=== PATIENT | female | born 1985 | race American Indian/Alaskan Native ===

== ENCOUNTER 2018-04-17 18:23 | Emergency (ER) | payer OTHER ==
[2018-04-17 18:45] VITALS: BP 140/85
[2018-04-17] MEDS ORDERED: TORADOL IM ONE (19:03)
[2018-04-17] MEDS ORDERED: NORCO 5/325 PO ONE (19:03)
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
== END 2018-04-17 20:40 | disposition home or self-care (01) ==
LOC: ED 18:23
DX: S40.022A Contusion of left upper arm, initial encounter (principal); S30.1XXA Contusion of abdominal wall, initial encounter; S20.219A Contusion of unspecified front wall of thorax, initial encounter; Z90.710 Acquired absence of both cervix and uterus; V49.9XXA Car occupant (driver) (passenger) injured in unspecified traffic accident, initial encounter; Y93.89 Activity, other specified; Y99.8 Other external cause status; Y92.410 Unspecified street and highway as the place of occurrence of the external cause
CPT/HCPCS: 71046; 72100; 73030; 96372; 99283; J1885